=== PATIENT | male | born 1995 | race Caucasian/White ===

== ENCOUNTER 2017-01-03 12:45 | Inpatient (IN) | payer OTHER ==
[~2017-01-03] VITALS: Ht 180.3 cm; Wt 91.6 kg
--- NOTE | 2017-01-03 13:30 | NUR ---
21 year old MALE admitted to room # 404 for stabilization. Reports an addiction to HEROIN last used 7 hours prior to admission. Compliant with admission procedure. See assessment forms for additional information about patient status.
[2017-01-03 14:00] VITALS: BP 138/63
--- NOTE | 2017-01-03 14:00 | NUR ---
21 year old MALE admitted to room # 404 for stabilization. Reports an addiction to 7 last used hours prior to admission. Compliant with admission procedure. See assessment forms for additional information about patient status.
[2017-01-03 14:09] LABS: BASO % 0.5 % (0.0-1.0); EOS # 0.2 10*3/uL (0.0-0.4); EOS % 2.1 % (1.0-4.0); HEMATOCRIT 43.6 % (42.0-52.0); HEMOGLOBIN 15.1 g/dl (14.0-18.0); LYMPH # 2.1 10*3/uL (1.3-4.4); LYMPH % 27.3 % (27.0-41.0); MEAN CELL VOLUME 85.8 fl (80.0-94.0); MEAN CORPUSCULAR HGB 29.7 pg (27.0-31.0); MEAN CORPUSCULAR HGB CONC 34.6 g/dl (33.0-37.0); MEAN PLATELET VOLUME 9.5 fl (9.6-12.3); MONO # 0.7 10*3/uL (0.1-1.0); NEUT # 4.6 10*3/uL (2.3-7.9); NEUT % 60.8 % (47.0-73.0); PLATELET COUNT AUTOMATED 263 10*3/uL (130-400); RED BLOOD COUNT 5.08 10*6/uL (4.50-5.90); RED CELL DISTRI WIDTH 12.8 % (0-14.5); WHITE BLOOD COUNT 7.6 10*3/uL (4.8-10.8)
[2017-01-03 14:24] LABS: ALBUMIN 4.2 gm/dl (3.1-4.5); ALKALINE PHOSPHATASE 72 U/L (45-117); BUN 15 mg/dl (7-24); CHLORIDE 101 mmol/L (98-107); CREATININE 0.99 mg/dL (0.70-1.30); ETHYL ALCOHOL < 3.0 mg/dl (<3); LIPASE 67 U/L (73-393); POTASSIUM 4.4 mmol/L (3.5-5.1); SGOT/AST 85 IU/L (3-35); SGPT/ALT 162 U/L (12-78); SODIUM 137 mmol/L (136-145); TOTAL PROTEIN 8.3 gm/dL (6.4-8.2)
[2017-01-03 14:48] LABS: BILIRUBIN NEGATIVE (NEGATIVE); BLOOD NEGATIVE (NEGATIVE); CLARITY CLEAR (CLEAR); COLOR YELLOW (YELLOW); GLUCOSE NEGATIVE (NEGATIVE); KETONE NEGATIVE (NEGATIVE); LEUKO ESTERASE NEGATIVE (NEGATIVE); NITRITE NEGATIVE (NEGATIVE); PH 6.5 (5.0-9.0); SPECIFIC GRAVITY 1.015 (1.005-1.030); UROBILINOGEN 0.2 E.U./dl (0.2-1.0)
[2017-01-03 14:56] LABS: URINE AMPHETAMINES < 1000 (1000ng/ml); URINE BARBITURATES < 200 (200ng/ml); URINE BENZODIAZEPINES < 200 (200ng/ml); URINE CANNABINOIDS (THC) < 50 (50ng/ml); URINE COCAINE > 300 (300ng/ml); URINE METHADONE < 300 (300ng/ml); URINE OPIATES > 300 (300ng/ml)
[2017-01-03 14:58] LABS: BACTERIA TRACE; RBC 0-2 rbc/hpf (0-2); URINE PHENCYCLIDINE < 25 (25ng/ml); WBC 0-2 wbc/hpf (0-5)
--- NOTE | 2017-01-03 15:18 | NUR ---
D/C PLANNING: PATIENT [place] [facility] [place]. DON ROMAN B.A. SUPPLY CHAIN BUYER
--- NOTE | 2017-01-03 15:42 | NUR ---
pt requested and given robaxin for muscle aches, and vistaril for anxiety. will monitor
[2017-01-03 16:00] VITALS: BP 119/58
--- NOTE | 2017-01-03 17:24 | NUR ---
PT RESTING IN BED, EYES CLOSED. ROBAXIN AND VISTARIL APPEAR EFFECTIVE, WILL MONITOR
[2017-01-03 20:00] VITALS: BP 133/58
--- NOTE | 2017-01-03 21:17 | NUR ---
Patient reports the following symptoms of withdrawal: body aches, leg pain, and cocaine cravings. Patient given scheduled/PRN medication to control withdrawal symptoms. Close observation will be maintained.
[2017-01-04] VITALS: BP 123/51
--- NOTE | 2017-01-04 00:48 | NUR ---
24 HR chart check completed.
[2017-01-04 04:00] VITALS: BP 124/54
[2017-01-04 08:00] VITALS: BP 108/63
--- NOTE | 2017-01-04 10:08 | NUR ---
Patient displaying withdrawal symptoms, including: restlessness, and muscle aches. Scheduled/PRN medications provided. Will continue to monitor medication effectiveness.
[2017-01-04 12:00] VITALS: BP 110/72
--- NOTE | 2017-01-04 12:30 | NUR ---
Patient resting. Responding to scheduled medications with fewer complaints of pain and anxiety.
--- NOTE | 2017-01-04 15:47 | NUR ---
D/C PLAN: PATIENT IS SET UP TO GO TO [facility] FOR HIS [facility] PLAN. PATIENT UNDERSTANDS AND AGREES TO PLANS FOR THE VIVITROL SHOT. DON CHINO B.A. INTAKE CORRDINATOR
[2017-01-04 16:00] VITALS: BP 122/56
[2017-01-04 20:00] VITALS: BP 119/63
--- NOTE | 2017-01-04 20:22 | NUR ---
PATIENT AWAKE IN BED AT THIS TIME. NO S/S OF DISTRESS NOTED. PATIENT DENIES ANY NEW/WORSENING SYMPTOMS. REQUESTING SLEEPING PILL TO BE BROUGHT IN WITH 2200 DOSE OF SUBUTEX. WILL MONITOR PATIENT. CALL LIGHT LEFT IN REACH.
--- NOTE | 2017-01-04 20:59 | NUR ---
PATIENT REQUESTED AND RECEIVED PO TRAZODONE PER PRN ORDER TO HELP HIM SLEEP. SCHEDULED SL SUBUTEX ALSO ADMINISTERED PER ORDER. WILL MONITOR EFFECTIVENESS. CALL LIGHT LEFT IN REACH.
--- NOTE | 2017-01-04 22:53 | NUR ---
EARLIER MEDICATION BEGINNING TO TAKE EFFECT PER PATIENT. STATES HE IS STARTING TO FEEL TIRED. RESTING IN BED WITH EYES OPEN. WILL CONTINUE TO MONITOR. CALL LIGHT LEFT IN REACH.
[2017-01-05] VITALS: BP 111/66
--- NOTE | 2017-01-05 06:23 | NUR ---
Rested quietly in bed. Resp easy and regular. Denies need for PRN medications, has hot/cold sweats, restlessness, and anxiety. Routine Subutex given as ordered. Will continue to closely monitor withdrawal symptoms.
[2017-01-05 08:00] VITALS: BP 101/77
--- NOTE | 2017-01-05 09:51 | NUR ---
Patient displaying withdrawal symptoms, including: irritability, restlessness, and restless legs. Medicated with vistaril and robaxin. Will continue to monitor medication effectiveness. Call light within reach.
--- NOTE | 2017-01-05 11:12 | NUR ---
Patient resting. Responding to scheduled medications with fewer complaints of pain and anxiety.
[2017-01-05 12:00] VITALS: BP 110/68
[2017-01-05 16:00] VITALS: BP 120/57
--- NOTE | 2017-01-05 17:59 | NUR ---
SCHEDULED SUBUTEX PROVIDED AT THIS TIME, PT DENIES ANY COMPLAINTS OR NEED FOR PRN MEDS. PT RESTING COMFORTABLY. WILL CONTINUE TO MONITOR.
[2017-01-05 20:00] VITALS: BP 112/57
[2017-01-06] VITALS: BP 127/74
--- NOTE | 2017-01-06 06:48 | NUR ---
Requested and medicated with Trazodone at 2346 to aid sleep. Trazodone only minimally effective to aid sleep, stated dozed off and on. Will continue to monitor.
[2017-01-06 08:12] VITALS: BP 116/62
--- NOTE | 2017-01-06 09:39 | NUR ---
IN TO SEE PT AT THIS TIME, NO PT FOUND IN ROOM, ALL BELONGINGS GONE. PT ELOPED. DR HICKS NOTIFIED.
--- NOTE | 2017-01-06 09:51 | NUR ---
NURSING OUTSIDE CUTTER HAND NOTIFIED OF ELOPEMENT.
== END 2017-01-06 09:39 | disposition left against medical advice (07) | DRG 894 ==
LOC: 4E 12:45
PROVIDERS: Internal Medicine Nephrology; ADMIT Internal Medicine
DX: F11.23 Opioid dependence with withdrawal (principal); F14.10 Cocaine abuse, uncomplicated; E66.3 Overweight; R73.9 Hyperglycemia, unspecified; B18.2 Chronic viral hepatitis C; F17.210 Nicotine dependence, cigarettes, uncomplicated; G25.81 Restless legs syndrome; F41.9 Anxiety disorder, unspecified; Z53.21 Procedure and treatment not carried out due to patient leaving prior to being seen by health care provider; Z71.6 Tobacco abuse counseling; Z68.27 Body mass index [BMI] 27.0-27.9, adult